=== PATIENT | female | born 1975 | race Two or more races ===

== ENCOUNTER → 2024-10-17 | Outpatient (BNVA) | payer MEDICAID, SELFPAY | END | disposition home or self-care (01) | PROVIDERS: PCP Nurse Practitioner Family; Referring Provider Nurse Practitioner Family; Visit Provider Nurse Practitioner Family | DX: Z71.2 Person consulting for explanation of examination or test findings (principal) | CPT/HCPCS: 99212; G0463 ==

== ENCOUNTER → 2024-10-30 | Outpatient (BNVA) | payer MEDICAID, SELFPAY | END | disposition home or self-care (01) | PROVIDERS: PCP Nurse Practitioner Family; Referring Provider Nurse Practitioner Family; Visit Provider Nurse Practitioner Family | DX: J10.1 Influenza due to other identified influenza virus with other respiratory manifestations (principal); F32.1 Major depressive disorder, single episode, moderate | CPT/HCPCS: 87804; 87811; 99214 ==

== ENCOUNTER → 2024-11-06 | Outpatient (BNVA) | payer MEDICAID, SELFPAY | END | disposition home or self-care (01) | PROVIDERS: PCP Nurse Practitioner Family; Referring Provider Nurse Practitioner Family; Visit Provider Nurse Practitioner Family | DX: M54.9 Dorsalgia, unspecified (principal); R52 Pain, unspecified | CPT/HCPCS: 99213 ==

== ENCOUNTER → 2024-11-10 | Outpatient (BNVA) | payer MEDICAID, SELFPAY | END | disposition home or self-care (01) | PROVIDERS: PCP Nurse Practitioner Family; Referring Provider Nurse Practitioner Family; Visit Provider Nurse Practitioner Family | DX: N39.0 Urinary tract infection, site not specified (principal); Z71.2 Person consulting for explanation of examination or test findings | CPT/HCPCS: 99212; G0463 ==

== ENCOUNTER → 2024-12-13 | Outpatient (BNVA) | payer MEDICAID, SELFPAY | END | disposition home or self-care (01) | PROVIDERS: PCP Nurse Practitioner Family; Referring Provider Nurse Practitioner Family; Visit Provider Nurse Practitioner Family | DX: N39.0 Urinary tract infection, site not specified (principal); N76.0 Acute vaginitis | CPT/HCPCS: 81001; 99215 ==

== ENCOUNTER → 2024-12-20 | Outpatient (BNVA) | payer MEDICAID, SELFPAY | END | disposition home or self-care (01) | PROVIDERS: PCP Nurse Practitioner Family; Referring Provider Nurse Practitioner Family; Visit Provider Nurse Practitioner Family | DX: N76.0 Acute vaginitis (principal); Z71.2 Person consulting for explanation of examination or test findings; R10.2 Pelvic and perineal pain | CPT/HCPCS: 99212; G0463 ==

== ENCOUNTER → 2024-12-27 | Outpatient (BNVA) | payer MEDICAID, SELFPAY | END | disposition home or self-care (01) | PROVIDERS: PCP Nurse Practitioner Family; Referring Provider Nurse Practitioner Family; Visit Provider Nurse Practitioner Family | DX: J10.1 Influenza due to other identified influenza virus with other respiratory manifestations (principal) | CPT/HCPCS: 87804; 87811; 99213 ==

== ENCOUNTER → 2024-12-29 | Outpatient (BNVA) | payer MEDICAID, SELFPAY | END | disposition home or self-care (01) | PROVIDERS: PCP Nurse Practitioner Family; Referring Provider Nurse Practitioner Family; Visit Provider Nurse Practitioner Family | DX: R10.2 Pelvic and perineal pain (principal); Z12.31 Encounter for screening mammogram for malignant neoplasm of breast; Z12.4 Encounter for screening for malignant neoplasm of cervix; N76.0 Acute vaginitis; N92.0 Excessive and frequent menstruation with regular cycle | CPT/HCPCS: 81001; 99215; Q0091 ==

== ENCOUNTER → 2025-01-05 | Outpatient (BNVA) | payer MEDICAID, SELFPAY | END | disposition home or self-care (01) | PROVIDERS: PCP Nurse Practitioner Family; Referring Provider Nurse Practitioner Family; Visit Provider Nurse Practitioner Family | DX: G43.D1 Abdominal migraine, intractable (principal) | CPT/HCPCS: 99212; Q3014; G0463 ==

== ENCOUNTER → 2025-01-12 | Outpatient (BNVA) | payer MEDICAID, SELFPAY | END | disposition home or self-care (01) | PROVIDERS: PCP Nurse Practitioner Family; Referring Provider Nurse Practitioner Family; Visit Provider Nurse Practitioner Primary Care | DX: Z71.2 Person consulting for explanation of examination or test findings (principal) | CPT/HCPCS: 99212; G0463 ==

== ENCOUNTER → 2025-02-06 | Outpatient (BNVA) | payer MEDICAID, SELFPAY | END | disposition home or self-care (01) | PROVIDERS: PCP Nurse Practitioner Family; Referring Provider Nurse Practitioner Family; Visit Provider Nurse Practitioner Primary Care | DX: R07.81 Pleurodynia (principal) | CPT/HCPCS: 81001; 81025; 99214 ==

== ENCOUNTER → 2025-02-12 | Outpatient (BNVA) | payer MEDICAID, SELFPAY | END | disposition home or self-care (01) | PROVIDERS: PCP Nurse Practitioner Family; Referring Provider Nurse Practitioner Family; Visit Provider Nurse Practitioner Family | DX: J06.9 Acute upper respiratory infection, unspecified (principal); M54.9 Dorsalgia, unspecified; G89.29 Other chronic pain; R05.9 Cough, unspecified; M48.00 Spinal stenosis, site unspecified | CPT/HCPCS: 87804; 87811; 99215 ==

== ENCOUNTER → 2025-02-28 | Outpatient (BNVA) | payer MEDICAID, SELFPAY | END | disposition home or self-care (01) | PROVIDERS: PCP Nurse Practitioner Family; Referring Provider Nurse Practitioner Family; Visit Provider Nurse Practitioner Family | DX: Z71.2 Person consulting for explanation of examination or test findings (principal); F32.1 Major depressive disorder, single episode, moderate; J01.90 Acute sinusitis, unspecified; F41.9 Anxiety disorder, unspecified; R52 Pain, unspecified | CPT/HCPCS: 99214 ==

== ENCOUNTER → 2025-02-28 | Outpatient (CLI) | payer MEDICAID, SELFPAY ==
--- NOTE | 2025-02-28 10:53 | XR_ITS ---
Examination: PA lateral chest 2 views TECHNIQUE: Upright PA lateral chest 2 views Exam date and time: February 28, 2025 1102 hours Comparison November 07, 2023 INDICATIONS: Coughing beginning one month ago. FINDINGS: Normal heart size Lungs are clear. The osseous structures are intact IMPRESSION: No active disease
== END | disposition home or self-care (01) ==
LOC: CDIM 10:43
PROVIDERS: PCP Nurse Practitioner Family; Referring Provider Nurse Practitioner Family; Visit Provider Nurse Practitioner Family
DX: R05.9 Cough, unspecified (principal)
CPT/HCPCS: 71046

== ENCOUNTER → 2025-03-08 | Outpatient (BNVA) | payer MEDICAID, SELFPAY | END | disposition home or self-care (01) | PROVIDERS: PCP Nurse Practitioner Family; Referring Provider Nurse Practitioner Family; Visit Provider Nurse Practitioner Family | DX: G43.919 Migraine, unspecified, intractable, without status migrainosus (principal); E78.5 Hyperlipidemia, unspecified; R73.03 Prediabetes | CPT/HCPCS: 99213 ==

== ENCOUNTER → 2025-03-23 | Outpatient (BNVA) | payer MEDICAID, SELFPAY | END | disposition home or self-care (01) | PROVIDERS: PCP Nurse Practitioner Family; Referring Provider Nurse Practitioner Family; Visit Provider Nurse Practitioner Family | DX: N39.0 Urinary tract infection, site not specified (principal) | CPT/HCPCS: 81001; 99214; 99215 ==

== ENCOUNTER → 2025-03-27 | Outpatient (CLI) | payer MEDICAID, SELFPAY ==
--- NOTE | 2025-03-27 14:15 | XR_ITS ---
Examination: Thoracic spine 3 views Technique one AP lateral coned lateral upper dorsal spine 3 views Date and time: March 27, 2025 1513 hours Comparison May 31, 2024 INDICATIONS: Upper back pain beginning one year ago. FINDINGS: Adequate alignment thoracic vertebral bodies No thoracic fracture Mild diffuse thoracic disc narrowing Minimal thoracic spondylosis IMPRESSION: Mild diffuse thoracic degenerative disc disease
--- NOTE | 2025-03-27 14:15 | XR_ITS ---
Examination: Lumbar spine, 5 views Technique: Lumbar spine AP, lateral, coned lateral lower lumbar spine, bilateral obliques 5 views Exam date and time: March 27, 2025 1500 hours INDICATIONS: Low back pain beginning one year ago. FINDINGS: Satisfactory alignment lumbar vertebral bodies No lumbar fracture No spondylolisthesis Mild disc narrowing L5-S1 IMPRESSION: Mild disc narrowing L5-S1
== END | disposition home or self-care (01) ==
PROVIDERS: PCP Nurse Practitioner Family; Referring Provider Nurse Practitioner Family; Visit Provider Nurse Practitioner Family
DX: M51.370 Other intervertebral disc degeneration, lumbosacral region with discogenic back pain only (principal); G89.29 Other chronic pain
CPT/HCPCS: 72072; 72110

== ENCOUNTER → 2025-03-30 | Outpatient (BNVA) | payer MEDICAID, SELFPAY | END | disposition home or self-care (01) | PROVIDERS: PCP Nurse Practitioner Family; Referring Provider Nurse Practitioner Family; Visit Provider Nurse Practitioner Family | DX: N39.0 Urinary tract infection, site not specified (principal) | CPT/HCPCS: 96372; 99215; A4216; J0696 ==

== ENCOUNTER → 2025-05-31 | Outpatient (BNVA) | payer MEDICAID, SELFPAY | END | disposition home or self-care (01) | PROVIDERS: PCP Nurse Practitioner Family; Referring Provider Nurse Practitioner Family; Visit Provider Nurse Practitioner Family | DX: G43.919 Migraine, unspecified, intractable, without status migrainosus (principal); N39.0 Urinary tract infection, site not specified; M51.34 Other intervertebral disc degeneration, thoracic region; E78.5 Hyperlipidemia, unspecified; R73.03 Prediabetes; F41.9 Anxiety disorder, unspecified; G89.29 Other chronic pain | CPT/HCPCS: 81001; 96372; 99215; J1885 ==

== ENCOUNTER → 2025-06-08 | Outpatient (BNVA) | payer MEDICAID, SELFPAY | END | disposition home or self-care (01) | PROVIDERS: PCP Nurse Practitioner Family; Referring Provider Nurse Practitioner Family; Visit Provider Nurse Practitioner Family | DX: N39.0 Urinary tract infection, site not specified (principal) | CPT/HCPCS: 99212; G0463 ==

== ENCOUNTER 2025-07-02 16:30 | Outpatient (RCR) | payer MEDICAID, SELFPAY ==
--- NOTE | 2025-06-20 15:19 | PT.OIERPT ---
PT OP Initial Eval Patient Information Outpatient Physical Therapy Treatment Date: 06/20/25 Visit Reasons: Chronic back pain Medical Diagnosis: M51.34 M54.9 M51.36 Treatment Dx #1: back pain Start of Care: 06/20/25 Date of Onset: 1.5 yrs ago Smoking Status Smoking Status: Never smoker Initial Assessment Subjective: Pt is 49 yr old jamaican speaking female who reports pain in the mid and lower back, insidious onset. 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 Increased pain with bending, lifting and prolonged sitting >15 minutes. The upper back feels like stabbing pain. PMH: high cholesterol, pre-DM, anxiety, depression Imaging: Mild disc narrowing L5-S1 according to L/s Xray Pt goal: to get rid of the LBP Objective: ?Trunk ArOM: ? B SB 70% of normal with pain ? Extension: 20% with pain around L4-5, L5-S1 ? Flexion: to floor with LBP standing back up ? B rotation: 80% ? TTP: moderate paraspinals L5-S1 and T/S T6-10 ? Neuro: R SLR: positive Assessment: Pt presents with trunk flexion sensitivity and overlying myofascial pain ? and TTP of midback and around L5-S1 consistent with degenerative changes including bone spurs and DDD of T/S and lumbar disc bulge(s) with radiculopathy. Pt requires skilled therapy in order to decrease pain and improve sitting/standing tolerance and has fair rehab potential. Eval followed by HEP printout. 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 1. Ind with HEP ? 2. Improve sitting tolerance to 30 minutes with <=4/10 LBP ? 3. Improved HH chore tolerance to at least 30 minutes with <=3/10 LBP and no ? increase in LE ssx 4. Decreased TTP of T/S and L/S from mod to min ? Treatment Plan 1. Manual therapy ? 2. Therex ? 3. Modalities as indicated, moist heat, ice, estim, mechanical traction Frequency and Duration: 1-2x a week for 8 visits plus the evaluation Certification Dates: 06/20/25 to 09/18/25 Procedure Charges OP PT Eval Mod Complex 30 minutes: Yes
--- NOTE | 2025-06-27 17:48 | PT.ODAYNRPT ---
PT Outpatient Daily Note OP Daily Note Outpatient Physical Therapy Treatment Date: 06/27/25 Visit Reasons: Chronic back pain Subjective: Same as time of evaluation Objective: See f/S for therex Assessment: Moderate TTP of T/S parsapinals with MT Plan: Continue per POC Length of Time (minutes) of Treatment: 30 Minutes Procedure Charges Therapeutic Exercise 30 minutes: Yes
--- NOTE | 2025-07-02 17:40 | PT.ODAYNRPT ---
PT Outpatient Daily Note OP Daily Note Outpatient Physical Therapy Treatment Date: 07/02/25 Visit Reasons: Chronic back pain Subjective: Continued back pain Objective: See F/S for therex MT: StM T/S with flexbar x7' Assessment: Good response to open book stretching with low tissue irritability of T/S. Pt can chin tuck to reduce fwd head posture. Plan: Continue per POC Length of Time (minutes) of Treatment: 30 Minutes Procedure Charges Therapeutic Exercise 30 minutes: Yes
== END 2025-07-08 23:59 | disposition home or self-care (01) ==
LOC: CPTX 16:30
PROVIDERS: PCP Nurse Practitioner Family; Referring Provider Nurse Practitioner Family; Visit Provider Nurse Practitioner Family
DX: M51.34 Other intervertebral disc degeneration, thoracic region (principal); M51.360 Other intervertebral disc degeneration, lumbar region with discogenic back pain only
CPT/HCPCS: 97110; 97162

== ENCOUNTER → 2025-07-18 | Outpatient (CLI) | payer MEDICAID, SELFPAY ==
--- NOTE | 2025-07-18 16:00 | XR_ITS ---
Examination: Retroperitoneal ultrasound, complete Technique: Multiple high resolution grayscale images of the retroperitoneum obtained, including kidneys and bladder. Exam date and time:July 18, 2025, 1624 hrs. Indications: Bilateral flank pain and urinary tract infections beginning one year ago. Findings: Right kidney 9.5 cm renal cortex 1.5 cm Left kidney 10.3 cm cortex 2.0 cm Mild renal scar formation. Contracted urinary bladder. Impression: Right renal cortical thinning Mild bilateral renal parenchymal scar formation. No hydronephrosis.
== END | disposition home or self-care (01) ==
LOC: CDIM 16:16
PROVIDERS: Referring Provider Nurse Practitioner Family; Visit Provider Nurse Practitioner Family
DX: N28.89 Other specified disorders of kidney and ureter (principal)
CPT/HCPCS: 76770

== ENCOUNTER → 2025-07-24 | Outpatient (BNVA) | payer MEDICAID, SELFPAY | END | disposition home or self-care (01) | PROVIDERS: PCP Nurse Practitioner Family; Referring Provider Nurse Practitioner Family; Visit Provider Nurse Practitioner Family | DX: Z71.2 Person consulting for explanation of examination or test findings (principal); N39.0 Urinary tract infection, site not specified | CPT/HCPCS: 99213 ==

== ENCOUNTER 2025-08-10 21:45 | Emergency (ER) | payer MEDICAID, SELFPAY ==
[2025-08-10 21:47] VITALS: BMI 34.0
[2025-08-10 22:36] VITALS: BP 179/97; PULSE 79; RESP 16; TEMP 37.1; O2SAT 98
--- NOTE | 2025-08-10 22:48 | EDNOTE_ITS ---
ED Female Urogenital RME/HPI General Chief complaint: Urogenital-Female Stated complaint: PAIN AND BURNING WITH URINATION Time Seen by Provider: 08/10/25 22:43 Arrival date/time: 08/10/25 21:45 49F with history of psych presents to ED with several days of dysuria. Patient recently finished a course of Macrobid. Limitations: no limitations Related Data Previous Rx's ?Medication ?Instructions ?Recorded evolocumab 140 mg/mL subcutaneous 140 mg subcut .twice a month 4 05/31/25 pen injector (Repatha SureClick) weeks #2 mL fluoxetine 40 mg capsule 40 mg PO QAM #90 caps galcanezumab-gnlm 120 mg/mL 120 mg subcut QMONTH #1 mL 05/31/25 subcutaneous pen injector (Emgality Pen) lidocaine 5 % topical patch 1 patch topical QDAY #30 e a 05/31/25 cefuroxime axetil 500 mg tablet 500 mg PO BID 7 days # 14 tabs 08/10/25 Allergies Allergy/AdvReac Type Severity Reaction Status Date / Time morphine Allergy Intermediate Palpitation Verified 08/10/25 21:46 s Review of Systems Review of Systems Systems Reviewed: All systems reviewed, normal except as documented Genitourinary Genitourinary: Reports as per HPI and Reports dysuria Past Medical History Past Medical History NEUROLOGIC: Positive Neurological Disorders, Ashraf's Palsy and Migraine; Negative Seizures CARDIAC: Positive Cardiac Disorders and Hypercholesterolemia; Negative Congestive Heart Failure RESPIRATORY: Negative Chronic Obstructive Pulmonary Disease (COPD) GASTROINTESTINAL: Positive Gastrointestinal Disorders and Gastroesophageal Reflux Disease GENITOURINARY: Positive Genitourinary Disorders (hx of UTI); Negative Renal Disease MUSCULOSKELETAL: Positive Arthritis; Negative Musculoskeletal Disorders ENDOCRINE: Negative Endocrine Disorders, Diabetes Mellitus Type 1 or Diabetes Mellitus Type 2 (pre dm no meds) HEMATOLOGIC: Negative Blood Disorders PSYCHO/SOCIAL: Positive Depression and Anxiety OTHER HISTORY: Negative Hospitalization, Autoimmune Disease, Down Syndrome, Falls, Blood Transfusions, Blood Transfusion Reaction, Anesthesia Reactions, Radiation Therapy, MRSA, Clostridium Difficile or Cancer Surgical History SURGICAL: Positive Open Reduction Internal Fixation Social History SMOKING STATUS: Never smoker SECOND HAND EXPOSURE: No ED Exam General Limitations: Present no limitations General appearance: Present alert and in no apparent distress Head Head exam: Present atraumatic Neck Neck exam: Present normal inspection, full ROM and trachea midline Chest Chest inspection: Present normal inspection and symmetric chest wall rise Neurological Exam Neurological exam: Present alert and oriented X3 Psychiatric Psychiatric exam: Present normal affect and normal mood Skin Skin exam: Present warm, dry, intact and normal color Course Quality Measures none Orders Category Date Time Status Drug Screen,Urine Stat Lab 08/10/25 23:00 Completed HCG Qualitative,Urine Stat Lab 08/10/25 23:00 Completed Urinalysis, C/S if Indicated Stat Lab 08/10/25 23:00 Completed Urine Culture Stat Lab 08/10/25 23:00 Received Fluconazole [Diflucan] Med 08/10/25 23:52 Discontinued 150 mg PO X1 ONE Naproxen [Naprosyn] Med 08/10/25 22:43 Discontinued 500 mg PO X1 ONE cefuroxime axetiL [cefUROXime axetil] Med 08/10/25 23:52 Discontinued 500 mg PO X1 ONE Vital Signs Vital signs: Vital Signs Temperature 98.7 F 08/10/25 22:36 Pulse Rate 79 08/10/25 22:36 Respiratory Rate 16 08/10/25 22:36 Blood Pressure 179/97 H 08/10/25 22:36 Pulse Oximetry (%) 98 08/10/25 22:36 Oxygen Delivery Method Room Air 08/10/25 22:36 O2 at 98% on RA and WNLs Urogenital - Female MDM Narrative MDM Narrative:: 49F with history of psych presents to ED with several days of dysuria. Patient recently finished a course of Macrobid. Physical exam reveals uncomfortable female. Patient is afebrile, calm, and alert. Tox and HCG neg. UA suggests UTI. Yeast also present. 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 Patient data External records reviewed:: [facility] previous records Clinical information provided by:: patient Social determinants that could affect healthcare access:: mental health Patient has the following chronic illnesses:: psych How is presenting disease/condition affected by chronic disease/condition?: exacerbated by Evaluation data The following diagnostics were reviewed and interpreted by me:: lab results Lab and/or radiology exams considered but not ordered:: ordered Interpretation Summary: above Medications / Prescriptions Medications or Prescriptions considered but not ordered:: ordered Medication administrations:: Medication Administration History Discontinued Medications Cefuroxime Axetil (Cefuroxime Axetil 250 Mg Tablet) 500 mg PO X1 ONE Stop: 08/10/25 23:53 Fluconazole (Fluconazole 150 Mg Tablet) 150 mg PO X1 ONE Stop: 08/10/25 23:53 Naproxen (Naproxen 250 Mg Tablet) 500 mg PO X1 ONE Stop: 08/10/25 22:44 Last Admin: 08/10/25 23:16 Dose: 500 mg Documented By: HELENA above Consultations Consultation(s) initiated? (list below): No Diagnosis Urogenital Female Differential Diagnosis: urinary tract infection, bacterial vaginosis, trichomoniasis, cervicitis, ovarian cyst, vaginitis, ruptured ovarian cyst, cyst of Bartholin's gland, cystitis, dysmenorrhea and other (yeast infection) Most likely diagnosis given after review of the tests above:: UTI and yeast infection Admission Indicated Admission indicated?: not indicated Admission Request Was there a request for admission?: No Disposition Plan Disposition Plan: Discharge Discharge Attestation Discharge Attestation: The patient and all family members were given an opportunity to ask questions and understood the discharge instructions. Discharge instructions specifically effects, indications for sooner follow up or return to the emergency department, and the expected course of current diagnosis. Patient condition: Stable Discharge Plan Plan Patient Disposition: HOME (Self Care) Discharge Disposition comment: Stable Prescriptions/Referrals Prescriptions/Med Rec: New cefuroxime axetil 500 mg tablet 500 mg PO BID 7 Days Qty: 14 0RF No Action fluoxetine 40 mg capsule 40 mg PO QAM Qty: 90 0RF Repatha SureClick 140 mg/mL pen injector 140 mg subcut .twice a month 28 Days Qty: 2 3RF Rx Instructions: Directions in [place] Emgality Pen 120 mg/mL pen injector 120 mg subcut QMONTH Qty: 1 3RF lidocaine 5 % adhesive patch,medicated 1 patch topical QDAY Qty: 30 1RF Rx Instructions: leave on most painful area for up to 12 hrs Referrals: [facility],Katie Faye CLOTH REELER [Primary Care Provider, Emergency Medicine] - In 1 week Problem List Clinical Impression: UTI (urinary tract infection), Yeast infection Patient/Caregiver Discharge Instructions Education Materials: ED CYSTITIS Female Adult Additional Instructions: Please follow-up with PCP within 24-48 hours and return immediately if symptoms worsen. NSAIDs like ibuprofen tend to work better for this type of pain. Print Language: [place] Zealander Stand Alone Forms: Patient Portal Info Letter [facility] Supervising Physician [place] Supervising Physician: Dr. Hinds
[2025-08-10] MEDS: NAPROXEN 250 MG TABLET 500 MG PO (23:16)
[2025-08-10 23:21] LABS: Collection Type, Urine Clean Catch
[2025-08-10 23:34] LABS: HCG Qualitative,Urine Negative
[2025-08-10 23:37] LABS: Amorphous Crystals,Urine Present (Absent); Bacteria,Urine 1+; Bilirubin,Urine Negative (Negative); Blood,Urine 3+ (Negative); Budding Yeast,Urine Present; Clarity,Urine Turbid (Clear/Hazy); Color,Urine Drk-Yellow (Lt Yel-Yel); Glucose, Urine Negative (Negative); Ketones,Urine Negative (Negative); Leukocyte Esterase,Urine Positive (Negative); Nitrite,Urine Negative (Negative); PH,Urine 7.0 (5.0-7.0); Protein,Urine Trace (Neg - Trace); RBC,Urine 28 /hpf (0-3); Specific Gravity,Urine 1.004 (1.001-1.035); Squamous Epithelial Cell,Urine 1 /hpf (0-5); Urobilinogen,Urine Negative mg/dL (0.0-1.0); WBC,Urine 128 /hpf (0-5)
[2025-08-10 23:38] LABS: Culture Indicated,Urine Yes
[2025-08-10 23:46] LABS: Amphetamine/Methamp Scrn,U Negative (Negative); Barbiturate Screen,Urine Negative (Negative); Benzodiazepines Screen,Urine Negative (Negative); Benzoylecgonine Screen, Ur Negative (Negative); Fentanyl Screen,Urine Negative (Negative); Opiate Screen,Urine Negative (Negative); THC Screen,Urine Negative (Negative)
[2025-08-10] MEDS: FLUCONAZOLE 150 MG TABLET PO (23:58)
[2025-08-11 00:04] VITALS: RESP 16
== END 2025-08-11 00:05 | disposition home or self-care (01) ==
PROVIDERS: Physician Assistant; Emergency Provider Emergency Medicine; PCP Nurse Practitioner Family
DX: N39.0 Urinary tract infection, site not specified (principal); B37.9 Candidiasis, unspecified
CPT/HCPCS: 80307; 81001; 81025; 87077; 87086; 87186; 99283; A9270

== ENCOUNTER → 2025-08-13 | Outpatient (CLI) | payer MEDICAID, SELFPAY ==
--- NOTE | 2025-08-13 16:32 | XR_ITS ---
Examination: Retroperitoneal ultrasound, complete Technique: Multiple high resolution grayscale images of the retroperitoneum obtained, including kidneys and bladder. Exam date and time:August 13, 2025, 1450 hours INDICATIONS: Urinary tract infections 1.5 years COMPARISON: 07/18/2025 FINDINGS: Right kidney 9.5 cm cortex 1.8 cm Left kidney 10.0 cm cortex 1.9 cm Mild bilateral renal parenchymal scar formation No hydronephrosis No bladder mass or bladder calculi IMPRESSION: Mild bilateral renal parenchymal scar formation
== END | disposition home or self-care (01) ==
LOC: CDIM 16:18
PROVIDERS: PCP Nurse Practitioner Family; Referring Provider Nurse Practitioner Family; Visit Provider Nurse Practitioner Family
DX: N28.89 Other specified disorders of kidney and ureter (principal)
CPT/HCPCS: 76770

== ENCOUNTER → 2025-08-13 | Outpatient (BNVA) | payer MEDICAID, SELFPAY | END | disposition home or self-care (01) | PROVIDERS: PCP Nurse Practitioner Family; Referring Provider Nurse Practitioner Family; Visit Provider Nurse Practitioner Family | DX: N39.0 Urinary tract infection, site not specified (principal); N12 Tubulo-interstitial nephritis, not specified as acute or chronic; N76.0 Acute vaginitis; Z28.21 Immunization not carried out because of patient refusal | CPT/HCPCS: 81001; 96372; 99215; A4216; J0696; J1885 ==

== ENCOUNTER → 2025-08-14 | Outpatient (BNVA) | payer MEDICAID, SELFPAY | END | disposition home or self-care (01) | PROVIDERS: PCP Nurse Practitioner Family; Referring Provider Nurse Practitioner Family; Visit Provider Nurse Practitioner Family | DX: Z71.2 Person consulting for explanation of examination or test findings (principal); N12 Tubulo-interstitial nephritis, not specified as acute or chronic; N39.0 Urinary tract infection, site not specified; G89.29 Other chronic pain; Z28.21 Immunization not carried out because of patient refusal | CPT/HCPCS: 99214 ==

== ENCOUNTER → 2025-08-29 | Outpatient (BNVA) | payer MEDICAID, SELFPAY | END | disposition home or self-care (01) | PROVIDERS: PCP Nurse Practitioner Family; Referring Provider Nurse Practitioner Family; Visit Provider Nurse Practitioner Family | DX: E78.5 Hyperlipidemia, unspecified (principal); R73.03 Prediabetes; R74.8 Abnormal levels of other serum enzymes ==

== ENCOUNTER 2025-09-03 08:26 | Outpatient (RCR) | payer MEDICAID, SELFPAY ==
--- NOTE | 2025-09-03 09:08 | PT.ODAYNRPT ---
PT Outpatient Daily Note OP Daily Note Outpatient Physical Therapy Treatment Date: 09/03/25 Visit Reasons: chronic back pain Subjective: Continued low back pain and R upper T/S pain and she wants an MRI so she came back to therapy. Objective: See F/S for therex MT: StM T/S and L/S with flexbar x7' Assessment: Good response to open book stretching with low tissue irritability of T/S. Pt can chin tuck to reduce fwd head posture. Plan: Continue per POC Length of Time (minutes) of Treatment: 30 Minutes Procedure Charges Therapeutic Exercise 30 minutes: Yes
== END 2025-09-07 23:59 | disposition home or self-care (01) ==
LOC: CPTX 08:26
PROVIDERS: PCP Nurse Practitioner Family; Referring Provider Nurse Practitioner Family; Visit Provider Nurse Practitioner Family
DX: M54.50 Low back pain, unspecified (principal); M54.6 Pain in thoracic spine; M51.34 Other intervertebral disc degeneration, thoracic region
CPT/HCPCS: 97110

== ENCOUNTER → 2025-09-28 | Outpatient (BNVA) | payer MEDICAID, SELFPAY | END | disposition home or self-care (01) | PROVIDERS: PCP Nurse Practitioner Family; Referring Provider Nurse Practitioner Family; Visit Provider Nurse Practitioner Family | DX: Z71.2 Person consulting for explanation of examination or test findings (principal); R73.03 Prediabetes; E78.5 Hyperlipidemia, unspecified | CPT/HCPCS: 99212; G0463 ==

== ENCOUNTER → 2025-10-02 | Outpatient (BNVA) | payer MEDICAID, SELFPAY | END | disposition home or self-care (01) | PROVIDERS: PCP Nurse Practitioner Family; Referring Provider Nurse Practitioner Family; Visit Provider Nurse Practitioner Family | DX: R30.0 Dysuria (principal); R10.84 Generalized abdominal pain | CPT/HCPCS: 81001; 99215 ==

== ENCOUNTER → 2025-10-09 | Outpatient (BNVA) | payer MEDICAID, SELFPAY | END | disposition home or self-care (01) | PROVIDERS: PCP Nurse Practitioner Family; Referring Provider Nurse Practitioner Family; Visit Provider Nurse Practitioner Family | DX: Z71.2 Person consulting for explanation of examination or test findings (principal); N39.0 Urinary tract infection, site not specified | CPT/HCPCS: 99212; G0463 ==

== ENCOUNTER → 2025-10-23 | Outpatient (BNVA) | payer MEDICAID, SELFPAY | END | disposition home or self-care (01) | PROVIDERS: PCP Nurse Practitioner Family; Referring Provider Nurse Practitioner Family; Visit Provider Nurse Practitioner Family | DX: Z71.2 Person consulting for explanation of examination or test findings (principal); N95.1 Menopausal and female climacteric states; N39.0 Urinary tract infection, site not specified | CPT/HCPCS: 99212; G0463 ==

== ENCOUNTER → 2025-10-30 | Outpatient (BNVA) | payer MEDICAID, SELFPAY | END | disposition home or self-care (01) | PROVIDERS: PCP Nurse Practitioner Family; Referring Provider Nurse Practitioner Family; Visit Provider Nurse Practitioner Family | DX: N39.0 Urinary tract infection, site not specified (principal) ==

== ENCOUNTER → 2025-11-06 | Outpatient (BNVA) | payer MEDICAID, SELFPAY | END | disposition home or self-care (01) | PROVIDERS: PCP Nurse Practitioner Family; Referring Provider Nurse Practitioner Family; Visit Provider Nurse Practitioner Family | DX: Z71.2 Person consulting for explanation of examination or test findings (principal); R10.84 Generalized abdominal pain; E78.5 Hyperlipidemia, unspecified | CPT/HCPCS: 99212; G0463 ==